=== PATIENT | female | born 1945 | race Caucasian/White ===

== ENCOUNTER 2021-06-16 07:00 | Day surgery (SDC) | payer MEDICARE, OTHER ==
--- NOTE | 2021-06-03 13:38 | NUR ---
DOS:06-16-21 STAIRS: HAS 2 STEPS INTO THE FRON OF THE HOUSE 1/2 STEP IN THE BACK OF THE HOUSE AND MANY STEPS TO COMPLETE LAURDRY IN THE BASEMENT. WALKER: HAS A FWW, AND CANE SHOWER: STEP OVER WITH SHOWER CHAIR AND HAND RAILS. TOILETS: HAS [facility] AND FOLLOW-UP APPOINTMENTS FAMILY WILL GET HER TO ALL APPOINTMENTS AND PHYSICAL THERAPY WILL BE COMPLETED IN [place].
[~2021-06-16] VITALS: Ht 160 cm; Wt 80.9 kg
[~2021-06-16 07:00] MED LIST: BAYER CHEWABLE81 MG PO; CRANBERRY300 MG PO; FISH OIL 1,001000 MG PO; LEVOTHYROXINE75 MC1 PO; MULTI VITAMIN1 EACH PO; OMEPRAZOLE20 MG PO; SENNA-PLUS TAB1 EACH PO; TOPROL XL25 MG PO; [UNRECOGNIZED DRUG - OTHER] TOP
[2021-06-16] MEDS ORDERED: DICLOFENAC SODI75 MG PO (11:07)
[2021-06-16] MEDS ORDERED: XARELTO10 MG PO (11:07)
[2021-06-16] MEDS ORDERED: HYDROMORPHONE HC4 MG PO (11:08)
[2021-06-16] MEDS ORDERED: GABAPENTIN300 MG PO (11:08)
--- NOTE | 2021-06-16 11:27 | NUR ---
06/16/21 1127 Latasha Stanton 1107 PT ARRIVED TO PACU ON RA AND VSS. PT TALKING TO RN AND DENIES PAIN AND NAUSEA. PT ABLE TO MOVE FEET SLIGHTLY. EDUCATION GIVEN ON SPINAL, ON-Q, AND TORADOL. PLAN OF CARE DISCUSSED.
--- NOTE | 2021-06-16 12:05 | NUR ---
PATIENT BACK TO ROOM FROM PACU. REPORT RECEIVED FROM BRIDGETT GODFREY. PATIENT RESTING COMFORTABLY IN BED. PATIENT IS AWAKE AND TALKING. PATIENT RATES PAIN 0/10 AND DENIES NAUSEA. VSS. PATIENT HAS CRYO CUFF IN PLACE. PATIENTS DRESSING IS CLEAN, DRY, AND INTACT. PATIENT STATES THE RIGHT KNEE IS NUMB. PROVIDED PATIENT WITH WATER AND CRACKERS. CALL LIGHT WITHIN REACH.
--- NOTE | 2021-06-16 13:03 | NUR ---
PATIENT RESTING COMFORTABLY IN BED. DAUGHTER AT BEDSIDE. VSS. DENIES PAIN AND NAUSEA. PATIENTS DRESSING IS CLEAN DRY AND INTACT. PATIENTS KNEE IS NUMB. CYRO CUFF IN PLACE. PATIENT DRINKING WATER. CALL LIGHT WITHIN REACH.
--- NOTE | 2021-06-16 13:20 | NUR ---
PATIENT UP TO BEDSIDE COMMODE WITH 2 RN ASSIST. GAIT UNSTEADY BUT TOLERATED WELL. URINE OUTPUT 300ML. PATIENT BACK TO BED. STATES PAIN IS 2-3/10 AFTER USING COMMODE. PROVIDED PATIENT WITH MORE CRACKERS AND WATER. DAUGHTER AT BEDSIDE. CALL LIGHT WITHIN REACH.
--- NOTE | 2021-06-16 13:42 | OR ---
[facility] [address] [place], [place] [address] Signed DATE OF OPERATION: 06/16/2021 SURGEON: Marc Marte MD PREOPERATIVE DIAGNOSIS: Severe degenerative joint disease of right knee. POSTOPERATIVE DIAGNOSIS: Severe degenerative joint disease of right knee. PROCEDURE PERFORMED: Right total knee arthroplasty with Brian. REGISTERED NURSE MIDWIFE: Marilee Hdez PA-C. ANESTHESIA: Spinal. BLOOD LOSS: 175 mL. TOURNIQUET TIME: Zero. IMPLANTS: Alexander Triathlon size 3 femur, size 4 tibia, 11 mm insert and 35 mm patella. BRIEF HISTORY: Keo is a 75-year-old female with severe pain in her knees as well as a significant flexion contracture. Risks and benefits of operative treatment were discussed with her and she elected to proceed. DESCRIPTION OF PROCEDURE: Once consent was obtained, she was taken to the operating room. After adequate anesthesia, she was placed on operating room table. All downside pressure points were well padded. The right leg was placed on a hip bump and prepped and draped in a standard sterile fashion. The knee was approached through an anterior midline incision, carried through skin and subcutaneous tissue and a mid vastus approach was undertaken; however, she was extremely tight and difficult to mobilize laterally. The quadriceps Electronically Signed By: MARC MARTE MD 06/16/21 1342 PATIENT NAME: KEO ROLON OPERATIVE REPORT DATE OF : 49 REPORT #: [id number] PHYSICIAN: MARC MARTE MD PCP: NO PRIMARY CARE PHYSICIAN REPORT IS CONFIDENTIAL AND NOT TO BE RELEASED WITHOUT AUTHORIZATION [facility] [address] [place], [place] [address] Signed was then incised 1 cm and this allowed better visualization; however, we did go ahead and make the patellar cut and this allowed the patella to be mobilized laterally. Lateral osteophytes were also removed. Once this was accomplished, we placed the computer in the medial femoral condyle along with checkpoint. The tibial ray was placed one handbreadth below the tibial tuberosity through percutaneous incisions. The leg was then registered with the computer as were the fine anatomic points of the knee. There was extensive medial tightness and this was addressed with varus in the tibia and femur, the rest will be addressed with soft tissue releases and osteophyte removal off the posterior side. Once we got the ligament balance robot was brought in and the straight cuts were done with care taken to protect the patellar tendon and MCL. The 2 angle cuts were then made and the bone pieces were removed as were any remaining osteophytes. The posterior osteophytes removed off the femur, these were large primarily medial based. Medial and posterior release was performed. The trials were then positioned. Knee was taken through range of motion. She had excellent stability with an 11 mm poly and full extension. The patella was then drilled for a 35 patella. The bone was quite good, so we elected to go with a non-cemented prosthesis. The prosthesis was obtained, and the tibia was impacted into position first followed by the polyethylene. The patella was then impacted into good position and was quite tight. The knee was extended and nicely loaded. We attempted to place the patella, however, it was quite soft in the patella and we elected to go ahead and cement it. The cement was mixed and reached to a proper consistency, it was placed on the patellar bone and patellar implant. This was then clamped and held in position. All excess cement was removed. The knee was pulse lavaged with 3 L of total normal saline, this was interrupted by an Irrisept soak in the middle. The periarticular soft tissues were injected with 100 mL of ropivacaine and Toradol mixture. The On-Q pain pump was percutaneously placed into the adductor canal from the suprapatellar pouch. The arthrotomy was then closed using a combination of #1 Vicryl and #2 StrataFix, the subcutaneous tissue with 2-0 StrataFix, and the skin with a 3-0 StrataFix. Steri-Strips were applied. The wound was then dressed with Acticoat 7 dressing, ABD, and Cale wrap. She tolerated the procedure well. All sponge, needle, and instrument counts were correct. Marc Marte MD BA/MODL /[id number] Electronically Signed By: MARC MARTE MD 06/16/21 1342 PATIENT NAME: KEO ROLON OPERATIVE REPORT DATE OF : 49 REPORT #: [id number] PHYSICIAN: MARC MARTE MD PCP: NO PRIMARY CARE PHYSICIAN REPORT IS CONFIDENTIAL AND NOT TO BE RELEASED WITHOUT AUTHORIZATION [address] [address] Signed Copies: ~ Electronically Signed By: MARC MARTE MD 06/16/21 1342 PATIENT NAME: KEO ROLON OPERATIVE REPORT DATE OF : 49 REPORT #: [id number] PHYSICIAN: MARC MARTE MD PCP: NO PRIMARY CARE PHYSICIAN REPORT IS CONFIDENTIAL AND NOT TO BE RELEASED WITHOUT AUTHORIZATION
--- NOTE | 2021-06-16 13:45 | NUR ---
VO FROM DR BAXTER TO CHANGE PATIENTS MEDICATION FROM DICLOFENAC TO NAPROSYN D/T MEDICATION ALLERGY.
--- NOTE | 2021-06-16 14:02 | NUR ---
PATIENT IS RESTING COMFORTABLY IN BED. DENIES PAIN WHILE LAYING DOWN. DENIES NAUSEA. VSS. DRESSING CLEAN, DRY, AND INTACT. CRYO CUFF IN PLACE. PATIENT DRINKING WATER. DAUGHTER AT BEDSIDE. CALL LIGHT WITHIN REACH.
--- NOTE | 2021-06-16 14:08 | NUR ---
THIS RN TO ROOM TO GIVE PAIN MEDICATION PER PTS PRIMARY RN. PT REPORT 3/10 PAIN WITH ACTIVITY, AND 0/10 WHEN RESTING. SCHEDULED MEDICATION GIVEN PRIOR TO PHYSICAL THERAPY. PT DENIES ADDITIONAL REQUESTS OR COMPLAINTS. BED RAILS UP, FAMILY AT BEDSIDE. CALL LIGHT WITHIN REACH.
--- NOTE | 2021-06-16 15:15 | NUR ---
PT IN WITH PATINET. PATIENT UP TO THE BEDSIDE COMMODE WITH PT. GAIT UNSTEADY AND TOLERATED WELL.
--- NOTE | 2021-06-16 15:45 | NUR ---
PATIENT BACK TO ROOM FROM PT. PATIENT IS RESTING COMFORTABLY IN BED. STATES PAIN 3/10 WHEN UP WALKING AND 0/10 WHEN LAYING DOWN. DENIES NAUSEA. VSS. PATIENTS DRESSING IS CLEAN, DRY, AND INTACT. KNEE STILL NUMB. PROVIDED PATIENT WITH WATER AND ORDER PATIENT SANDWICH. CALL LIGHT WITHIN REACH.
--- NOTE | 2021-06-16 16:55 | NUR ---
PATIENT DISCHARGED HOME. PROVIDED PATIENT WITH DISCHARGE INSTRUCTIONS, VERBALIZED UNDERSTANDING AND ALL QUESTIONS ANSWERED. PATIENT'S PAIN IS 0-3/10 DEPENDING ON SITTING OR UP AND MOVING. PROVIDED PATIENT A WHEELCHAIR RIDE TO FRONT OF HOSPITAL WHERE HER DAUGHTER AND SON-IN-LAW WHERE WAITING WITH THE CAR.
== END 2021-06-16 16:45 | disposition home or self-care (01) ==
LOC: DS 07:00
PROVIDERS: ATTEND Specialist
PROC: 0SRC0J9 Replacement of Right Knee Joint with Synthetic Substitute, Cemented, Open Approach (ICD-10-PCS; principal; 2021-06-16 09:15)
DX: M17.11 Unilateral primary osteoarthritis, right knee (principal); Z88.0 Allergy status to penicillin; Z88.2 Allergy status to sulfonamides; Z88.8 Allergy status to other drugs, medicaments and biological substances; Z88.5 Allergy status to narcotic agent
CPT/HCPCS: 01402; 64447; 64450; 76942; 97110; 97116; 97161; C1713; C1776; J0690; J1100; J1885; J2001; J2250; J2704; J2795; J7040; J7121